=== PATIENT | female | born 1940 | race Caucasian/White ===

== ENCOUNTER → 2016-07-18 | Day surgery (SDC) | payer MEDICARE ==
[~2016-07-18] VITALS: Ht 149.9 cm; Wt 54.1 kg
[~2016-07-18] MED LIST: AMLO5TAB2 PO; APIX5TAB PO; ATEN50TA PO; ATOR40TA16 PO; FURO20TA PO; INSULIN HUMAN REGULAR 1,000 UNITS/10 ML VIAL SQ PRN; LACTATED RINGER'S 1000 ML IV SCH; METOPROLOL TARTRATE 25 MG TAB PO PRN; OFLOXACIN 0.3% OPTH SOLN 5 ML BTL ONE; PRIL20CA9 PO; SODIUM CHLORID 0.9% 500 ML IV SCH
[2016-07-18 07:05] VITALS: BP 156/97; PULSE 72; RESP 20; TEMP 98.1; O2SAT 100
== END | disposition home or self-care (01) ==
LOC: HSDC 06:15
PROVIDERS: ATTEND Specialist
DX: Z45.82 Encounter for adjustment or removal of myringotomy device (stent) (tube) (principal); Z53.8 Procedure and treatment not carried out for other reasons
CPT/HCPCS: 99211; G0463

== ENCOUNTER → 2016-07-25 | Day surgery (SDC) | payer MEDICARE ==
--- NOTE | 2016-07-23 10:07 | MH ---
cc: BILL AARON DATE OF ADMISSION: 07/25/2016 HISTORY OF PRESENT ILLNESS A 75-year-old female with chronic otitis media on the right side for right myringotomy and T-tube placement. PAST MEDICAL HISTORY Unremarkable. PAST SURGICAL HISTORY Unremarkable. REVIEW OF SYSTEMS, FAMILY HISTORY, SOCIAL HISTORY Unremarkable. PHYSICAL EXAMINATION GENERAL: A well-appearing patient in no acute distress noted. HEENT: Exam reveals fluid behind the right eardrum. LUNGS: Clear. HEART: Regular rate and rhythm. ABDOMEN: Soft and nontender. EXTREMITIES: Without cyanosis, clubbing or edema. NEUROLOGIC: Alert and oriented. Nonfocal neurologic exam. IMPRESSION AND PLAN This is a patient with chronic otitis for right myringotomy and T-tube placement. She was instructed as to the method of surgery and possible complications which include anesthetic complications, cardiac difficulty, pulmonary difficulty, stroke, or even , surgical complications of bleeding, infection, risk of transfusion, early or late extrusion of tube, tympanic membrane perforation, conductive or sensorineural hearing loss. The patient appeared to agree, accept and understand the above-mentioned risks and benefits. In addition, no guarantees or warranties regarding outcome were given. Will therefore proceed with surgery. MD MUNIRA Pablo/SANIYA /9:53 AM /10:02 AM
[~2016-07-25] VITALS: Ht 149.9 cm; Wt 54.5 kg
[~2016-07-25] MED LIST changes: +ACETAMINOPHEN/HYDROcodone 325 MG/7.5 MG TAB PO PRN; +DO NOT ADM ANY ANTICOAGULANT DRUGS XX PRN; +MEPERIDINE HCL 25 MG/ML VIAL IV PRN; -OFLOXACIN 0.3% OPTH SOLN 5 ML BTL ONE; +OFLOXACIN 0.3% OPTH SOLN 5 ML BTL RIGHT EAR ONE; +ONDANSETRON HCL 4 MG/2 ML VIAL IV PUSH PRN; +PROPOFOL 200 MG/20 ML AMP IV ONE
[2016-07-25 08:39] VITALS: BP 140/99; PULSE 76; RESP 20; TEMP 98.1; O2SAT 98
[2016-07-25 11:50] VITALS: BP 154/85; PULSE 73; RESP 20; TEMP 97.3; O2SAT 97
--- NOTE | 2016-07-25 20:47 | EKG ---
Date Performed: 07/25/2016 Time Performed: 08:39:30 PTAGE: 75 years EKG: ATRIAL FIBRILLATION When compared to previous tracing, atrial fibrillation has replaced Sin us rhythm . ABNORMAL RHYTHM ECG PREVIOUS TRACING : 10/04/2012 15.21 DOCTOR: Caleb Flores Interpretating Date/Time 07/25/2016 20:46:15
--- NOTE | 2016-07-29 07:05 | MP ---
cc: BILL AARON DATE OF OPERATION 07/25/2016 PREOPERATIVE DIAGNOSIS Chronic otitis media. PROCEDURE Right myringotomy and T-tube placement. ANESTHESIA General anesthesia. ESTIMATED BLOOD LOSS Minimal. COMPLICATIONS No complications. OPERATING SURGEON Dr. Aaron OPERATION Prepped and draped in the usual fashion. Under microscopic visualization anterior-inferior radial myringotomy incision was made on the right side, fluid suctioned from the middle ear cavity and tympanostomy T-tube placed in good position along with Oflox. The patient tolerated the procedure well. MD MUNIRA Pablo/KRISTOFER /11:56 AM /7:04 AM
== END | disposition home or self-care (01) ==
LOC: HSDC 08:05
PROVIDERS: ATTEND Specialist
DX: H66.91 Otitis media, unspecified, right ear (principal); I48.91 Unspecified atrial fibrillation; I10 Essential (primary) hypertension; E78.5 Hyperlipidemia, unspecified; Z87.891 Personal history of nicotine dependence
CPT/HCPCS: 00126; 69436; 93005; J7120